=== PATIENT | male | born 1950 | race Caucasian/White ===

== ENCOUNTER → 2016-08-08 | Outpatient (CLI) | payer MEDICARE, BC ==
--- NOTE | 2016-08-08 20:15 | CT ---
EXAMINATION TYPE: CT abdomen pelvis w con DATE OF EXAM: 08/08/2016 8:00 PM COMPARISON: NONE HISTORY: Left hip joint pain. History of melanoma to head and neck CT DLP: 2108.70 mGycm Automated exposure control for dose reduction was used. TECHNIQUE: Helical acquisition of images was performed from the lung bases through the pelvis. CONTRAST: Performed with Oral Contrast and with IV Contrast, patient injected with 100 mL of Omnipaque 300. FINDINGS: Lung bases are clear of infiltrate. There is no pleural effusion. Heart size is normal. Liver shows no focal defect. Spleen pancreas gallbladder appear normal. Bile ducts are not dilated. T here is an 8 cm cortical cyst on the lateral left kidney. There is no hydronephrosis. There is no adr enal mass. There is no retroperitoneal adenopathy. There is no ascites. Bladder distends smoothly. Th ere is no sign of a pelvic mass. Appendix appears normal. I see no intestinal wall thickening. There are no dilated loops. There are spondylotic changes in the lumbar spine with significant spinal steno sis at L4-5. I see no focal bone destruction. There is multilevel lumbars spondylosis. There is mild acetabular spurring at the hip joints. I see no focal bone destruction. There is no sign of a fractur e. IMPRESSION: LARGE LEFT RENAL CORTICAL CYST. SEVERE L4-5 SPINAL STENOSIS. I SEE NO EVIDENCE OF ABDOMINAL OR PELVIC METASTATIC DISEASE. MILD OSTEOARTHRITIS NOTED IN BOTH HIP JOINTS.
== END | disposition home or self-care (01) ==
LOC: RADCTMAIN 19:27
PROVIDERS: ATTEND Nurse Practitioner
DX: N28.1 Cyst of kidney, acquired (principal); Z85.820 Personal history of malignant melanoma of skin
CPT/HCPCS: 74177; Q9967

== ENCOUNTER → 2018-04-29 | Outpatient (CLI) | payer MEDICARE, BC ==
[2018-04-29 10:48] VITALS: BMI 36.2
== END | disposition home or self-care (01) ==
LOC: MNTWWP 09:59
PROVIDERS: ATTEND Family Medicine
DX: E66.9 Obesity, unspecified (principal); Z68.36 Body mass index [BMI] 36.0-36.9, adult
CPT/HCPCS: 97802

== ENCOUNTER → 2020-02-10 | Outpatient (CLI) | payer MEDICARE, BC | END | disposition home or self-care (01) | LOC: LABWHC1 14:28 | PROVIDERS: ATTEND Family Medicine | DX: Z03.818 Encounter for observation for suspected exposure to other biological agents ruled out (principal); M79.10 Myalgia, unspecified site | CPT/HCPCS: U0003; C9803 ==